=== PATIENT | female | born 1995 | race Caucasian/White ===

== ENCOUNTER 2018-05-13 12:10 | Outpatient (REF) | payer MEDICAID, SELFPAY ==
--- NOTE | 2018-05-13 | PAPFT_PTH ---
PATIENT: Molly Terrazas LOC: XI U#:[id number] AGE/SX: 23/F ROOM: RE05/13/[address]: Demi Pierson APRN : 1995 BED: DIS: 05/13/2018 SPEC #: [id number] RECD: 05/14/18 12:28 STATUS: SHELDON REEvin #: [id number] ANETA: 05/13/18 00:[address]: Demi Pierson DEPT: [facility] Cytology RECD BY: Sophy Junior Tissues: 1 - CX/ENDOCX FOR PAP SMEARS Procedures: PAP THIN PREP/[facility] Screening Comments: [id number] (CHLAMYDIA/GC)
[2018-05-15 12:43] LABS: Chlamydia Result Negative; GC Result Negative; Specimen Description SEE COMMENTS
== END 2018-05-13 12:30 ==
LOC: LBN 12:10
PROVIDERS: PCP Nurse Practitioner; Visit Provider Nurse Practitioner
DX: Z11.3 Encounter for screening for infections with a predominantly sexual mode of transmission (principal); Z12.4 Encounter for screening for malignant neoplasm of cervix
CPT/HCPCS: 87491; 87591; 88142

== ENCOUNTER 2020-09-11 13:43 | Outpatient (REF) | payer SELFPAY ==
--- NOTE | 2020-09-11 11:45 | PAPFT_PTH ---
PATIENT: Molly Terrazas LOC: XI U#:[id number] AGE/SX: 25/F ROOM: RE09/11/[address]: Demi Pierson APRN : 1995 BED: DIS: 09/11/2020 SPEC #: [id number] RECD: 09/11/20 18:16 STATUS: SHELDON TAYLOR #: [id number] ANETA: 09/11/20 11:[address]: Demi Pierson DEPT: [facility] Cytology RECD BY: Sophy Junior Tissues: 1 - CX/ENDOCX FOR PAP SMEARS Procedures: PAP THIN PREP/[facility] Screening Comments: [id number] (CHLAMYDIA/GC)
[2020-09-12 14:28] LABS: Chlamydia Result Negative (Negative); GC Result Negative (Negative)
== END 2020-09-11 13:44 | disposition home or self-care (01) ==
LOC: LBN 13:43
PROVIDERS: PCP Nurse Practitioner; Visit Provider Nurse Practitioner
DX: Z11.3 Encounter for screening for infections with a predominantly sexual mode of transmission (principal); Z12.4 Encounter for screening for malignant neoplasm of cervix
CPT/HCPCS: 87491; 87591; 88142

== ENCOUNTER 2022-08-01 00:58 | Outpatient (CLI) | payer MEDICAID, SELFPAY ==
--- NOTE | 2022-08-01 | DI.MAMMO_ITS ---
Exam(s) US BREAST LT COMPLETE US BREAST RT COMPLETE MG MAMMO DIAGNOSTIC BI EXAM: MG MAMMO DIAGNOSTIC BI AND BILATERAL COMPLETE BREAST ULTRASOUND CLINICAL HISTORY: RT BREAST PAIN AT 1 O'CLOCK, N64.4; LT LAT BREAST PAIN AT 3 O'CLOCK, N64.4. TECHNIQUE: CC AND MLO mammographic images OF BOTH BREASTS were obtained with 3D tomosynthesis techni que and utilizing computer aided detection (CAD). BILATERAL COMPLETE BREAST ULTRASOUND was performed, including all 4 quadrants of both breasts, the re troareolar regions, and both axillary regions. COMPARISON: Baseline study on this 27-year-old patient to has bilateral breast pain. Denies lumps. Denies nipple discharge. Denies recent and also denies recent piercings. Her pain is predominantly medially in the right breast and laterally in the left breast. FINDINGS: BILATERAL DIAGNOSTIC MAMMOGRAM: There are no spiculated masses nor malignant-appearing microcalcification groups in either breast. There is no significant architectural distortion or skin thickening-traction. BILATERAL COMPLETE BREAST ULTRASOUND: There is no evidence of solid or significant cystic lesions in all 4 quadrants of both breasts nor in the retroareolar regions. No significant focal ultrasound findings in maximum areas of tenderness w hich are in the medial aspect of the right breast on the lateral aspect of the left breast. Graft sc anning of both axillary regions is negative for adenopathy. IMPRESSION: No radiographic evidence of malignancy Also negative complete bilateral breast ultrasound BI-RADS Category 2 - Benign Findings Breast Density - Category B - Scattered areas of fibroglandular density Breast density Category C or D implies that the patient has dense breast tissue. Dense breast tissue can make it harder to find cancer on a mammogram. Dense breast tissue is also associated with an incr eased risk of breast cancer. This information about the result of the mammogram report was provided to the patient to raise their awareness. Use this report when you speak with the patient about their risks for breast cancer, which includes their family history. At that time, you may recommend additional screening tests (Ultrasoun d or MRI) as these tests may add significant information. A negative radiographic report should not delay biopsy if a dominant or clinically suspicious mass is present. Up to ten percent of cancers are not identified on mammography. A negative report may reinforce clinical impression. Adenosis and dense breasts may obscure an underlying neoplasm. False positive reports average 6 to 10%. Patient will receive a letter notifying them of these results.
== END 2022-08-01 01:18 ==
LOC: DI 00:58
PROVIDERS: PCP Nurse Practitioner; Visit Provider Nurse Practitioner
DX: N64.4 Mastodynia (principal)
CPT/HCPCS: 76642; 77062; 77066; G0279

== ENCOUNTER 2023-05-26 16:18 | Outpatient (REF) | payer MEDICAID, SELFPAY ==
--- NOTE | 2023-05-26 14:15 | PAPFT_PTH ---
PATIENT: Molly Terrazas LOC: XI U#:[id number] AGE/SX: 28/F ROOM: RE05/26/[address]: Demi Pierson APRN : 1995 BED: DIS: 05/26/2023 SPEC #: [id number] RECD: 05/26/23 18:11 STATUS: SHELDON REQ #: [id number] ANETA: 05/26/23 14:[address]: Demi Pierson DEPT: [facility] Cytology RECD BY: Sophy Junior Tissues: 1 - CX/ENDOCX FOR PAP SMEARS Procedures: PAP THIN PREP/[facility] Screening Comments: [id number]
== END 2023-05-26 16:19 | disposition home or self-care (01) ==
LOC: LBN 16:18
PROVIDERS: PCP Nurse Practitioner; Visit Provider Nurse Practitioner
DX: Z12.4 Encounter for screening for malignant neoplasm of cervix (principal)
CPT/HCPCS: 88142